=== PATIENT | female | born 1980 | race Two or more races ===

== ENCOUNTER 2018-08-17 10:05 | Outpatient (CLI) | payer MEDICAID ==
[~2018-08-17] VITALS: Ht 160 cm; Wt 83.5 kg
== END 2018-08-17 13:30 | disposition home or self-care (01) ==
LOC: LDOP 10:05
PROVIDERS: ATTEND Obstetrics & Gynecology
DX: O46.93 Antepartum hemorrhage, unspecified, third trimester (principal); O99.283 Endocrine, nutritional and metabolic diseases complicating pregnancy, third trimester; E86.0 Dehydration; Z3A.39 39 weeks gestation of pregnancy
CPT/HCPCS: 59025; 96360; 96361; 99211; J7120; G0463

== ENCOUNTER 2018-08-20 05:41 | Inpatient (IN) | payer MEDICAID ==
[~2018-08-20] VITALS: Ht 160 cm; Wt 83.6 kg
[~2018-08-20 05:41] MED LIST: FOLITAB PO; IBUP-1222 PO; OXYC-302 PO; SENN-92 PO; no meds taken
[2018-08-20] MEDS ORDERED: NEWBORN KIT ONE (05:46)
[2018-08-20] MEDS ORDERED: METOCLOPRAMIDE 5 MG/ML, 2ML ONE (05:46)
[2018-08-20] MEDS ORDERED: SODIUM CITRATE/CITRIC ACID 15 ML UDC ONE (05:46)
[2018-08-20] MEDS ORDERED: LACTATED RINGERS 1,000 ML IVBOLUS ONE (06:00)
[2018-08-20 06:01] LABS: BASOPHILS # (AUTO) 0.07 x10^3/uL (0-0.1); BASOPHILS % (AUTO) 1 % (0-1); EOSINOPHILS # (AUTO) 0.05 x10^3/uL (0-0.4); EOSINOPHILS % (AUTO) 0 % (1-7); LYMPHOCYTES # (AUTO) 2.08 x10^3/uL (1-3.4); LYMPHOCYTES % (AUTO) 16 % (22-44); MD NO; MEAN CORPUSCULAR HEMOGLOBIN 26.6 pg (27.0-34.8); MEAN CORPUSCULAR HGB CONC 31.8 g/dL (32.4-35.8); MEAN CORPUSCULAR VOLUME 83.6 fL (80-100); MEAN PLATELET VOLUME 8.4 fL (7.4-10.4); MONOCYTES # (AUTO) 0.34 x10^3/uL (0.2-0.8); MONOCYTES % (AUTO) 3 % (2-9); NEUTROPHILS # (AUTO) 10.29 x10^3/uL (1.8-6.8); NEUTROPHILS % (AUTO) 80 % (42-75); PLATELET COUNT 328 x10^3/uL (130-400); RED CELL DISTRIBUTION WIDTH 16.3 % (9.6-15.2)
[2018-08-20 06:03] VITALS: BP 128/78
[2018-08-20] MEDS ORDERED: FENTANYL PF 100 MCG/2ML ONE ×2 (06:10→07:23)
[2018-08-20] MEDS ORDERED: METOCLOPRAMIDE 5 MG/ML, 2ML IV ONE (06:30)
[2018-08-20] MEDS ORDERED: FENTANYL PF 100 MCG/2ML IVPush PRN (06:30)
[2018-08-20] MEDS ORDERED: SODIUM CITRATE/CITRIC ACID 15 ML UDC PO ONE (06:30)
[2018-08-20] MEDS ORDERED: OXYTOCIN 30U/ 0.9% NaCL 500ML 500 ML ONE (06:51)
[2018-08-20] MEDS: LACTATED RINGERS 1,000 ML IV SCH ×8 (07:01→23:20)
[2018-08-20] MEDS ORDERED: SODIUM CHLORIDE 0.9% PF 10ML ONE ×2 (07:23→07:24)
[2018-08-20] MEDS ORDERED: OXYTOCIN 10 UNITS/ML, 1ML ONE (07:23)
[2018-08-20] MEDS ORDERED: HYDROmorphone 2 MG/ML, 1ML ONE (07:23)
[2018-08-20] MEDS ORDERED: ONDANSETRON 2MG/ML, 2ML ONE (07:23)
[2018-08-20] MEDS ORDERED: CEFAZOLIN 1,000 MG ONE (07:23)
[2018-08-20] MEDS ORDERED: MISOPROSTOL 200 MCG TABLET PR PRN (07:30)
[2018-08-20] MEDS ORDERED: OXYcodone/APAP 5/325MG TABLET PO PRN (07:30)
[2018-08-20] MEDS ORDERED: MORPHINE SULFATE 4 MG/ML, 1ML IVPush PRN (07:30)
[2018-08-20] MEDS ORDERED: METHYLERGONOVINE 0.2 MG/ML IM PRN (07:30)
[2018-08-20] MEDS ORDERED: ONDANSETRON 2MG/ML, 2ML IV PRN (07:30)
[2018-08-20] MEDS ORDERED: IBUPROFEN 600 MG TABLET PO PRN (07:30)
[2018-08-20] MEDS ORDERED: CARBOPROST TROMETHAMINE 250 MCG/ML, 1ML IM PRN (07:30)
[2018-08-20] MEDS ORDERED: MISOPROSTOL 200 MCG TABLET ONE (07:34)
[2018-08-20] MEDS: PRENATAL VIT/IRON/FA 1 EACH TABLET PO SCH (09:00)
[2018-08-20] MEDS: OXYTOCIN 30U/ 0.9% NaCL 500ML 500 ML IV SCH ×2 (09:17→20:23)
[2018-08-20] MEDS ORDERED: OXYcodone/APAP 5/325MG TABLET ONE (10:04)
[2018-08-20] MEDS: OXYcodone/APAP 5/325MG TABLET PO PRN ×4 (10:06→22:40)
[2018-08-20 11:00] VITALS: BP 126/79
[2018-08-20] MEDS: KETOROLAC 30 MG/1 ML IVPush SCH ×3 (11:29→23:17)
[2018-08-20 15:30] VITALS: BP 117/78
[2018-08-20 16:06] LABS: BASOPHILS % (AUTO) 1 % (0-1); EOSINOPHILS # (AUTO) 0.04 x10^3/uL (0-0.4); EOSINOPHILS % (AUTO) 0 % (1-7); LYMPHOCYTES # (AUTO) 2.14 x10^3/uL (1-3.4); LYMPHOCYTES % (AUTO) 16 % (22-44); MD NO; MEAN CORPUSCULAR HEMOGLOBIN 26.5 pg (27.0-34.8); MEAN CORPUSCULAR HGB CONC 31.6 g/dL (32.4-35.8); MEAN CORPUSCULAR VOLUME 83.7 fL (80-100); MEAN PLATELET VOLUME 8.2 fL (7.4-10.4); MONOCYTES # (AUTO) 0.43 x10^3/uL (0.2-0.8); MONOCYTES % (AUTO) 3 % (2-9); NEUTROPHILS # (AUTO) 11.06 x10^3/uL (1.8-6.8); NEUTROPHILS % (AUTO) 80 % (42-75); PLATELET COUNT 255 x10^3/uL (130-400); RED BLOOD COUNT 3.31 x10^6/uL (3.82-5.3); RED CELL DISTRIBUTION WIDTH 16.6 % (9.6-15.2)
[2018-08-20 19:15] VITALS: BP_SYST 114; BP_SYST 155; BP_DIAS 76; BP_DIAS 94
[2018-08-20 20:05] VITALS: BP 113/73
[2018-08-21] VITALS: BP 112/60
[2018-08-21] MEDS: OXYcodone/APAP 5/325MG TABLET PO PRN ×7 (03:06→23:44)
[2018-08-21] MEDS: OXYTOCIN 30U/ 0.9% NaCL 500ML 500 ML IV SCH ×3 (03:20→22:45)
[2018-08-21] MEDS: LACTATED RINGERS 1,000 ML IV SCH ×6 (03:20→22:45)
[2018-08-21] MEDS: KETOROLAC 30 MG/1 ML IVPush SCH ×4 (05:13→23:44)
[2018-08-21 05:15] VITALS: BP 116/76
[2018-08-21 07:59] VITALS: BP 109/72
[2018-08-21] MEDS: FERROUS SULFATE 325 MG TABLET PO SCH (08:15)
[2018-08-21] MEDS: PRENATAL VIT/IRON/FA 1 EACH TABLET PO SCH (08:16)
[2018-08-21] MEDS: ASCORBIC ACID 500 MG TABLET PO SCH (08:16)
[2018-08-21] MEDS: FOLIC ACID 1 MG TABLET PO SCH (08:16)
[2018-08-21] MEDS: DOCUSATE 100 MG CAPSULE PO SCH ×2 (11:57→19:37)
[2018-08-21 19:40] VITALS: BP 132/86
[2018-08-22] MEDS: KETOROLAC 30 MG/1 ML IVPush SCH (05:53)
[2018-08-22] MEDS: OXYcodone/APAP 5/325MG TABLET PO PRN ×5 (05:53→23:45)
[2018-08-22 07:20] VITALS: BP 119/74
[2018-08-22] MEDS: LACTATED RINGERS 1,000 ML IV SCH ×5 (07:20→22:08)
[2018-08-22] MEDS: FOLIC ACID 1 MG TABLET PO SCH (07:57)
[2018-08-22] MEDS: DOCUSATE 100 MG CAPSULE PO SCH ×2 (07:57→19:18)
[2018-08-22] MEDS: ASCORBIC ACID 500 MG TABLET PO SCH (07:57)
[2018-08-22] MEDS: FERROUS SULFATE 325 MG TABLET PO SCH (07:57)
[2018-08-22] MEDS: PRENATAL VIT/IRON/FA 1 EACH TABLET PO SCH (07:57)
[2018-08-22] MEDS: OXYTOCIN 30U/ 0.9% NaCL 500ML 500 ML IV SCH ×2 (09:20→19:17)
[2018-08-22] MEDS ORDERED: IBUPROFEN 200 MG TABLET PO PRN (12:00)
[2018-08-22] MEDS: SIMETHICONE 80 MG CHEW TAB PO PRN ×2 (12:13→18:35)
[2018-08-22] MEDS: IBUPROFEN 600 MG TABLET PO PRN (18:35)
[2018-08-22 19:45] VITALS: BP 135/82
[2018-08-23] MEDS: IBUPROFEN 600 MG TABLET PO PRN ×4 (00:30→18:19)
[2018-08-23] MEDS: OXYcodone/APAP 5/325MG TABLET PO PRN ×5 (04:02→20:48)
[2018-08-23] MEDS: LACTATED RINGERS 1,000 ML IV SCH ×5 (04:56→23:20)
[2018-08-23] MEDS: OXYTOCIN 30U/ 0.9% NaCL 500ML 500 ML IV SCH ×2 (04:56→15:20)
[2018-08-23 07:45] VITALS: BP 113/74
[2018-08-23] MEDS: ASCORBIC ACID 500 MG TABLET PO SCH (08:32)
[2018-08-23] MEDS: FERROUS SULFATE 325 MG TABLET PO SCH (08:32)
[2018-08-23] MEDS: DOCUSATE 100 MG CAPSULE PO SCH ×2 (08:33→20:48)
[2018-08-23] MEDS: PRENATAL VIT/IRON/FA 1 EACH TABLET PO SCH (08:33)
[2018-08-23] MEDS: FOLIC ACID 1 MG TABLET PO SCH (09:00)
[2018-08-23 20:00] VITALS: BP 129/88
[2018-08-23] MEDS: SIMETHICONE 80 MG CHEW TAB PO PRN (20:47)
[2018-08-24] MEDS: OXYcodone/APAP 5/325MG TABLET PO PRN ×3 (00:53→09:47)
[2018-08-24] MEDS: IBUPROFEN 600 MG TABLET PO PRN ×2 (00:53→07:05)
[2018-08-24] MEDS: LACTATED RINGERS 1,000 ML IV SCH ×3 (01:20→11:20)
[2018-08-24] MEDS: OXYTOCIN 30U/ 0.9% NaCL 500ML 500 ML IV SCH ×2 (01:20→11:20)
[2018-08-24] MEDS: ASCORBIC ACID 500 MG TABLET PO SCH (07:03)
[2018-08-24] MEDS: FERROUS SULFATE 325 MG TABLET PO SCH (07:04)
[2018-08-24] MEDS: DOCUSATE 100 MG CAPSULE PO SCH (07:05)
[2018-08-24] MEDS: PRENATAL VIT/IRON/FA 1 EACH TABLET PO SCH (07:06)
[2018-08-24] MEDS: FOLIC ACID 1 MG TABLET PO SCH (07:06)
[2018-08-24 07:09] VITALS: BP 123/81
[2018-08-24] MEDS ORDERED: IBUP-1222 PO (08:23)
[2018-08-24] MEDS ORDERED: SENN-92 PO (08:24)
[2018-08-24] MEDS ORDERED: OXYC-302 PO (08:24)
[2018-08-24] MEDS ORDERED: FERR1TAB9 PO (08:25)
== END 2018-08-24 11:57 | disposition home or self-care (01) | DRG 788 ==
LOC: LDIP 05:41 → 2NW 10:47
PROVIDERS: ADMIT Obstetrics & Gynecology; ATTEND Obstetrics & Gynecology
PROC: 10D00Z1 Extraction of Products of Conception, Low, Open Approach (ICD-10-PCS; principal; 2018-08-20)
DX: O34.211 Maternal care for low transverse scar from previous cesarean delivery (principal); Z37.0 Single live birth; Z3A.39 39 weeks gestation of pregnancy; O99.02 Anemia complicating childbirth; D64.9 Anemia, unspecified; Z88.1 Allergy status to other antibiotic agents
CPT/HCPCS: 36415; 85025; 86850; 86900; G0378; J0690; J1170; J1885; J2405; J3010; J2590; J2765; J7120

== ENCOUNTER 2020-01-24 14:46 | Day surgery (SDC) | payer MEDICAID, OTHER ==
[~2020-01-24] VITALS: Ht 160 cm; Wt 66.0 kg
[~2020-01-24 14:46] MED LIST changes: +FERR1TAB9 PO
[2020-01-24] MEDS ORDERED: CHLORHEXIDINE 15 ML UDC ONE (14:47)
[2020-01-24] MEDS ORDERED: PROPOFOL 10 MG/ML, 20ML ONE (15:05)
[2020-01-24] MEDS ORDERED: LIDOCAINE-MPF 2% ,5ML ONE (15:05)
[2020-01-24] MEDS ORDERED: DEXAMETHASONE 4 MG/ML, 1ML ONE (15:05)
[2020-01-24] MEDS ORDERED: ONDANSETRON 2MG/ML, 2ML ONE (15:05)
[2020-01-24] MEDS ORDERED: FENTANYL PF 100 MCG/2ML ONE (15:13)
[2020-01-24] MEDS ORDERED: MIDAZOLAM 1 MG/ML, 2ML ONE (15:13)
[2020-01-24] MEDS ORDERED: [UNRECOGNIZED DRUG - REMARK] (15:19)
[2020-01-24 15:20] VITALS: BP 144/91
[2020-01-24] MEDS ORDERED: BUPIVACAINE/PF 0.25% ONE (15:23)
[2020-01-24] MEDS ORDERED: SILVER NITRATE STICK TP ONE (15:23)
[2020-01-24] MEDS ORDERED: EPINEPHRINE 1 MG/ML, 1ML ONE (15:23)
[2020-01-24] MEDS ORDERED: FENTANYL PF 100 MCG/2ML IV PRN (15:30)
[2020-01-24] MEDS ORDERED: LACTATED RINGERS 1,000 ML IV SCH (15:30)
[2020-01-24] MEDS ORDERED: LABETALOL 5MG/ML, 20ML IV PRN (15:30)
[2020-01-24] MEDS ORDERED: CHLORHEXIDINE 15 ML UDC MM ONE (15:30)
[2020-01-24] MEDS ORDERED: PROMETHAZINE 25 MG/ML, 1ML IVPush PRN (15:30)
[2020-01-24] MEDS ORDERED: ACETAMINOPHEN 325 MG TABLET PO PRN (15:30)
[2020-01-24] MEDS ORDERED: HYDROmorphone 1 MG/ML, 1ML INJ IVPush PRN (15:30)
[2020-01-24] MEDS ORDERED: ALBUTEROL SULFATE 2.5 MG/3 ML NPPB PRN (15:30)
[2020-01-24] MEDS ORDERED: hydrALAzine 20 MG/ML, 1ML IV PRN (15:30)
[2020-01-24] MEDS ORDERED: MEPERIDINE/PF 25MG/0.5ML IVPush PRN (15:30)
[2020-01-24 15:33] LABS: BASOPHILS % (AUTO) 1 % (0-1); EOSINOPHILS % (AUTO) 2 % (1-7); LYMPHOCYTES % (AUTO) 40 % (22-44); MEAN CORPUSCULAR HEMOGLOBIN 27.7 pg (27.0-34.8); MEAN CORPUSCULAR HGB CONC 32.2 g/dL (32.4-35.8); MEAN PLATELET VOLUME 8.2 fL (7.4-10.4); MONOCYTES % (AUTO) 4 % (2-9); NEUTROPHILS % (AUTO) 53 % (42-75); PLATELET COUNT 321 x10^3/uL (130-400); RED BLOOD COUNT 3.97 x10^6/uL (3.82-5.3); RED CELL DISTRIBUTION WIDTH 16.3 % (9.6-15.2)
[2020-01-24 15:35] LABS: MD NO
[2020-01-24] MEDS ORDERED: KETOROLAC 30 MG/1 ML ONE (15:50)
[2020-01-24] MEDS: OXYcodone 5 MG/5 ML ORAL.SOL UDC PO PRN ×2 (17:32→17:35)
== END 2020-01-24 18:15 | disposition home or self-care (01) ==
LOC: OUT 14:46
PROVIDERS: ATTEND Obstetrics & Gynecology
DX: N93.9 Abnormal uterine and vaginal bleeding, unspecified (principal); Z20.828 Contact with and (suspected) exposure to other viral communicable diseases; D25.1 Intramural leiomyoma of uterus; Z79.3 Long term (current) use of hormonal contraceptives; Z79.899 Other long term (current) drug therapy; Z88.1 Allergy status to other antibiotic agents; Z90.49 Acquired absence of other specified parts of digestive tract; Z98.890 Other specified postprocedural states
CPT/HCPCS: 36415; 58558; 81025; 85025; 87635; 88305; J0171; J1100; J1885; J2250; J2405; J2704; J3010

== ENCOUNTER 2020-01-24 18:37 | Emergency (ER) | payer MEDICAID, OTHER ==
[~2020-01-24] VITALS: Ht 160 cm; Wt 66.5 kg
[~2020-01-24 18:37] MED LIST changes: +[UNRECOGNIZED DRUG - REMARK]
[2020-01-24 19:31] LABS: BASOPHILS % (AUTO) 1 % (0-1); EOSINOPHILS % (AUTO) 0 % (1-7); LYMPHOCYTES % (AUTO) 7 % (22-44); MEAN CORPUSCULAR HEMOGLOBIN 27.5 pg (27.0-34.8); MEAN CORPUSCULAR HGB CONC 31.7 g/dL (32.4-35.8); MEAN PLATELET VOLUME 8.6 fL (7.4-10.4); MONOCYTES % (AUTO) 1 % (2-9); NEUTROPHILS % (AUTO) 92 % (42-75); PLATELET COUNT 343 x10^3/uL (130-400); RED BLOOD COUNT 4.06 x10^6/uL (3.82-5.3); RED CELL DISTRIBUTION WIDTH 16.2 % (9.6-15.2)
[2020-01-24 19:34] LABS: ALBUMIN 3.9 g/dL (3.4-5.0); ANION GAP 4 mmol/L (5-15); CALCIUM 8.8 mg/dL (8.5-10.1); CHLORIDE 109 mmol/L (98-107)
[2020-01-24 19:41] LABS: ALANINE AMINOTRANSFERASE 23 U/L (12-78); ALKALINE PHOSPHATASE 44 U/L (45-117); BILIRUBIN,TOTAL 0.4 mg/dL (0.2-1.0); CREATININE 0.92 mg/dL (0.55-1.02); TROPONIN I < 0.015 ng/mL (0.000-0.045)
--- NOTE | 2020-01-24 20:20 | NUR ---
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 Epigastric pain non tender to palpation, pain goes away when pressure applied. All monitoring in place, VSS, A&Ox4, moves all extremities well. Call light in reach
[2020-01-24 20:35] LABS: MD SCAN
--- NOTE | 2020-01-24 20:38 | NUR ---
UA COLLECTED AND SENT
[2020-01-24 20:53] LABS: MICROSCOPIC AUTO
[2020-01-24] MEDS ORDERED: OXYcodone/APAP 5/325MG TABLET ONE (21:15)
[2020-01-24 21:23] VITALS: BP 112/66
[2020-01-24] MEDS ORDERED: OXYcodone/APAP 5/325MG TABLET PO ONE (21:30)
--- NOTE | 2020-01-24 22:06 | NUR ---
Patient given discharge instructions and they have confirmed that they understand the instructions. Patient ambulatory with steady gait.
== END 2020-01-24 22:07 | disposition home or self-care (01) ==
LOC: ED 19:07
DX: K29.00 Acute gastritis without bleeding (principal); R10.13 Epigastric pain; R07.89 Other chest pain; I45.9 Conduction disorder, unspecified
CPT/HCPCS: 36415; 71046; 80053; 81001; 84484; 85025; 87086; 93005; 99285